=== PATIENT | female | born 1950 | race Caucasian/White ===

== ENCOUNTER 2018-02-20 13:22 | Outpatient (CLI) | payer MEDICARE ==
[~2018-02-20] VITALS: Ht 157.5 cm; Wt 93.4 kg
[2018-02-20] MEDS ORDERED: IRBE300T19 PO (13:57)
[2018-02-20] MEDS ORDERED: OMEP20CA10 PO (13:57)
[2018-02-20] MEDS ORDERED: MONT10TA24 PO (13:57)
[2018-02-20] MEDS ORDERED: ATOR-2 PO (13:57)
[2018-02-20] MEDS ORDERED: SERT100T10 PO (13:57)
[2018-02-20] MEDS ORDERED: HYDR-3964 PO (13:57)
[2018-02-20 14:46] LABS: BASOPHILS # (AUTO) 0.1 X10'3 (0-0.2); BASOPHILS % (AUTO) 0.7 % (0-1); EOSINOPHILS # (AUTO) 0.2 X10'3 (0-0.9); EOSINOPHILS % (AUTO) 1.8 % (0-6); LYMPHOCYTES % (AUTO) 35.5 % (21-51); MEAN CORPUSCULAR HEMOGLOBIN 26.4 PG (27.0-31.0); MEAN CORPUSCULAR HGB CONC 33.5 % (33.0-36.5); MEAN CORPUSCULAR VOLUME 78.9 FL (78-98); MEAN PLATELET VOLUME 7.6 FL (7.4-10.4); MONOCYTES # (AUTO) 0.9 X10'3 (0-0.9); MONOCYTES % (AUTO) 7.5 % (2-12); NEUTROPHILS # (AUTO) 6.2 X10'3 (1.8-7.7); NEUTROPHILS % (AUTO) 54.5 % (42-75); PRE OP HEMATOCRIT 39.1 % (35.0-45.0); PRE OP HEMOGLOBIN 13.1 g/dL (12.0-16.0); PRE OP PLATELET COUNT 435 X10'3 (140-440); RED BLOOD COUNT 4.96 X10'6 (4.20-5.60); RED CELL DISTRIBUTION WIDTH 16.2 % (11.5-14.5)
[2018-02-20 15:00] LABS: ALBUMIN 3.4 G/DL (3.4-5.0); ALBUMIN/GLOBULIN RATIO 0.8 (1.1-1.5); ALKALINE PHOSPHATASE 106 IU/L (46-116); BLOOD UREA NITROGEN 18 MG/DL (7-18); BUN/CREATININE RATIO 23.1 (6.6-38.0); CALCIUM 9.4 MG/DL (8.5-10.1); CHLORIDE 103 MMOL/L (99-107); CREATININE 0.78 MG/DL (0.40-0.90); PRE OP ALT 41 U/L (30-65); PRE OP ANION GAP 7 (8-16); PRE OP AST 23 U/L (10-37); PRE OP BILIRUB, TOTAL 0.2 MG/DL (0.0-1.0); PRE OP GLUCOSE 100 MG/DL (70-104); PRE OP POTASSIUM 4.1 MMOL/L (3.4-5.1); PRE OP SODIUM 138 MMOL/L (135-145); TOTAL PROTEIN 7.8 G/DL (6.4-8.2); eGFR 74 ML/MIN
[2018-02-20 15:21] LABS: CLARITY,URINE SLIGHTLY CLOUDY (Clear); COLOR,URINE YELLOW (Yellow); GLUCOSE, URINE NEGATIVE (Neg); KETONES,URINE NEGATIVE (Neg); LEUKOCYTE ESTERASE ,URINE NEGATIVE (Neg); NITRITES, URINE NEGATIVE (Neg); OCCULT BLOOD,URINE NEGATIVE (Neg); PH,URINE 5.5 (4.8-8.0); PROTEIN,URINE NEGATIVE (Neg); UROBILINOGEN,URINE 0.2 E.U/dL (0.2-1.0)
[2018-02-20 15:29] LABS: UA COLLECTION TYPE CLN CATCH MIDSTREAM
[2018-02-20 15:30] LABS: MUCUS STRANDS FEW /LPF (Neg); SQUAMOUS EPITHELIAL CELL,UR MANY /LPF (FEW)
[2018-02-20 15:31] LABS: BACTERIA,URINE 1+ /HPF (Neg); RBC,URINE 0-2 /HPF (0-2); WBC,URINE 0-4 /HPF (0-4)
[2018-02-27] MEDS ORDERED: ringers solution, lacted 1,000 ML IV SCH (05:00)
[2018-02-27] MEDS ORDERED: famotidine 20mg tablet PO ONE (05:30)
== END 2018-02-20 23:59 | disposition home or self-care (01) ==
LOC: PRE-OP 13:22 → EDSTATUS 02-27 11:45
PROVIDERS: ATTEND Orthopaedic Surgery
DX: Z01.812 Encounter for preprocedural laboratory examination (principal); M19.012 Primary osteoarthritis, left shoulder
CPT/HCPCS: 36415; 80053; 81001; 85025; 87070

== ENCOUNTER 2018-03-27 05:48 | Inpatient (IN) | payer MEDICARE ==
[2018-03-27] VITALS (17 sets, daily range): BP systolic 115–153; BP diastolic 62–79
[~2018-03-27] VITALS: Ht 157.5 cm; Wt 93.6 kg
[~2018-03-27 05:48] MED LIST: ATOR-2 PO; Cefazolin 2GM/50ML dext iso,osmotic IVPB IV ONE; IRBE300T19 PO; MONT10TA24 PO; OMEP20CA10 PO; SERT100T10 PO; famotidine 20mg tablet PO ONE; ringers solution, lacted 1,000 ML IV SCH; vancomycin inj 1,500 MG in normal saline 300ml IV soln IV ONE
[2018-03-27] MEDS ORDERED: LIDOcaine 1% (10mg/ml) 2ml vial ONE (06:08)
[2018-03-27 06:59] LABS: BASOPHILS # (AUTO) 0.1 X10'3 (0-0.2); BASOPHILS % (AUTO) 0.5 % (0-1); EOSINOPHILS # (AUTO) 0.2 X10'3 (0-0.9); EOSINOPHILS % (AUTO) 2.4 % (0-6); HEMATOCRIT 38.4 % (35.0-45.0); HEMOGLOBIN 12.9 g/dl (12.0-16.0); LYMPHOCYTES % (AUTO) 31.2 % (21-51); MEAN CORPUSCULAR HEMOGLOBIN 26.2 PG (27.0-31.0); MEAN CORPUSCULAR HGB CONC 33.5 % (33.0-36.5); MEAN CORPUSCULAR VOLUME 78.1 FL (78-98); MEAN PLATELET VOLUME 7.7 FL (7.4-10.4); MONOCYTES # (AUTO) 0.8 X10'3 (0-0.9); MONOCYTES % (AUTO) 8.4 % (2-12); NEUTROPHILS # (AUTO) 5.4 X10'3 (1.8-7.7); NEUTROPHILS % (AUTO) 57.5 % (42-75); PLATELET COUNT 393 X10'3 (140-440); RED BLOOD COUNT 4.92 X10'6 (4.20-5.60); RED CELL DISTRIBUTION WIDTH 16.5 % (11.5-14.5); WHITE BLOOD COUNT 9.5 X10'3 (4.5-11.0)
[2018-03-27 07:14] LABS: ALANINE AMINOTRANSFERASE 37 U/L (12-78); ALBUMIN 3.3 G/DL (3.4-5.0); ALBUMIN/GLOBULIN RATIO 0.8 (1.1-1.5); ALKALINE PHOSPHATASE 99 IU/L (46-116); ANION GAP 9 (8-16); ASPARTATE AMINO TRANSFERASE 20 U/L (10-37); BILIRUBIN,TOTAL 0.3 MG/DL (0.1-1.0); BLOOD UREA NITROGEN 15 MG/DL (7-18); CALCIUM 9.4 MG/DL (8.5-10.1); CHLORIDE 104 MMOL/L (99-107); CREATININE 0.75 MG/DL (0.40-0.90); GLUCOSE 112 MG/DL (70-104); POTASSIUM 3.9 MMOL/L (3.5-5.1); SODIUM 138 MMOL/L (135-145); TOTAL CARBON DIOXIDE 25.1 MMOL/L (24-32); TOTAL PROTEIN 7.6 G/DL (6.4-8.2); eGFR 77 ML/MIN
[2018-03-27] MEDS ORDERED: ketorolac trometh. 30mg/ml inj. ONE (08:02)
[2018-03-27] MEDS ORDERED: ROPIVAcaine 0.5% (5mg/ml) 30ml vial ONE ×3 (08:03→12:01)
[2018-03-27] MEDS ORDERED: rocuronium bromide 100mg/10ml (10mg/ml) injection IV ONE (08:35)
[2018-03-27] MEDS ORDERED: dexamethasone sod phosphate 10mg/ml inj ONE (08:35)
[2018-03-27] MEDS ORDERED: sevoflurane 250ml liquid IH ONE (08:35)
[2018-03-27] MEDS ORDERED: scopolamine 1.5mg patch.TD72 TD ONE (08:41)
[2018-03-27] MEDS ORDERED: cloNIDine hcl/PF 100mcg/ml inj ONE (08:44)
[2018-03-27] MEDS ORDERED: midazolam 2 mg/2 ml injection ONE (08:46)
[2018-03-27] MEDS ORDERED: fentaNYL/PF 50MCG/1 ML 2ML syringe ONE (08:46)
[2018-03-27] MEDS ORDERED: propofol inj 20 ML IV ONE (08:59)
[2018-03-27] MEDS ORDERED: LIDOcaine 1%/PF 5ML 10 MG/ML VIAL ONE (08:59)
[2018-03-27] MEDS ORDERED: tranexamic acid inj. 1,000 MG in normal saline 100ml IV soln 90 ML IV ONE ×2 (09:30→12:30)
[2018-03-27] MEDS ORDERED: ringers solution, lacted 1,000 ML IV SCH (09:53)
[2018-03-27] MEDS ORDERED: proCHLORperazine 10 MG/2 ml inj IV PRN (09:55)
[2018-03-27] MEDS ORDERED: ondansetron/PF 4mg/2ml inj IV PRN ×2 (09:55→10:55)
[2018-03-27] MEDS ORDERED: morphine 4 MG/ML inj SYRINge IV PRN ×2 (09:55)
[2018-03-27] MEDS ORDERED: meperidine/PF 25mg/ml syringe IV PRN ×3 (09:55)
[2018-03-27] MEDS ORDERED: ondansetron/PF 4mg/2ml inj ONE (10:13)
[2018-03-27] MEDS ORDERED: vancomycin 1,000mg inj ONE ×2 (10:17→10:18)
[2018-03-27] MEDS ORDERED: magnesium hydroxide 30ml (MOM) UD suspension PO PRN (10:55)
[2018-03-27] MEDS ORDERED: diphenhydrAMINE 25mg capsule PO PRN ×2 (10:55)
[2018-03-27] MEDS ORDERED: HYDROmorphone 1 mg/ml syringe IV PRN ×2 (10:55)
[2018-03-27] MEDS ORDERED: acetaminophen 325mg tablet PO PRN (10:55)
[2018-03-27] MEDS ORDERED: bisacodyl 10mg suppository rectal RC PRN (10:55)
[2018-03-27] MEDS ORDERED: oxyCODONE IR 5mg (immed. release) tablet PO PRN ×2 (10:55)
[2018-03-27] MEDS: pantoprazole 40mg Tablet.DR PO SCH (11:13)
[2018-03-27] MEDS ORDERED: tranexamic acid inj. 940 MG in normal saline 100ml IV soln 100 ML IV ONE (14:00)
[2018-03-27] MEDS: potassium cl 20mEq in 1/2 NS 1,000 ML IV SCH (14:57)
[2018-03-27] MEDS: gabapentin 300mg capsule PO SCH ×2 (14:58→20:16)
[2018-03-27] MEDS: ceFAZolin 1GM/D5W- ADD-VANTAGE 50 ML IV SCH (15:43)
[2018-03-27] MEDS: ketorolac tromethamine 15mg/ml inj. IV SCH ×2 (15:43→20:16)
[2018-03-27] MEDS: acetaminophen 325mg tablet PO SCH ×2 (15:44→20:18)
[2018-03-27] MEDS ORDERED: vancomycin/NS 1 GM ADD-VANTAGE 250 ML IV SCH (20:00)
[2018-03-27] MEDS ORDERED: atorvastatin 20mg tablet PO SCH (21:00)
[2018-03-27] MEDS ORDERED: sennosides 8.6mg tablet PO SCH (21:00)
[2018-03-27] MEDS ORDERED: losartan 50mg tablet PO SCH (21:00)
[2018-03-27] MEDS ORDERED: montelukast 10mg tablet PO SCH (21:00)
[2018-03-27] MEDS ORDERED: sertraline 50mg tablet PO SCH (21:00)
[2018-03-28] MEDS: ceFAZolin 1GM/D5W- ADD-VANTAGE 50 ML IV SCH (00:07)
[2018-03-28 02:00] VITALS: BP 123/59
[2018-03-28] MEDS: ketorolac tromethamine 15mg/ml inj. IV SCH ×2 (02:17→07:55)
[2018-03-28] MEDS: potassium cl 20mEq in 1/2 NS 1,000 ML IV SCH ×3 (02:18→10:52)
[2018-03-28] MEDS: acetaminophen 325mg tablet PO SCH ×3 (02:18→13:48)
[2018-03-28 06:00] VITALS: BP 115/71
[2018-03-28 06:24] LABS: BASOPHILS % (AUTO) 0.1 % (0-1); EOSINOPHILS # (AUTO) 0.2 X10'3 (0-0.9); EOSINOPHILS % (AUTO) 1.4 % (0-6); HEMOGLOBIN 10.2 g/dl (12.0-16.0); LYMPHOCYTES # (AUTO) 2.8 X10'3 (1.1-4.8); LYMPHOCYTES % (AUTO) 21.2 % (21-51); MEAN CORPUSCULAR HEMOGLOBIN 25.9 PG (27.0-31.0); MEAN CORPUSCULAR HGB CONC 32.9 % (33.0-36.5); MEAN CORPUSCULAR VOLUME 78.7 FL (78-98); MEAN PLATELET VOLUME 7.7 FL (7.4-10.4); MONOCYTES % (AUTO) 7.6 % (2-12); NEUTROPHILS # (AUTO) 9.2 X10'3 (1.8-7.7); NEUTROPHILS % (AUTO) 69.7 % (42-75); PLATELET COUNT 320 X10'3 (140-440); RED BLOOD COUNT 3.94 X10'6 (4.20-5.60); RED CELL DISTRIBUTION WIDTH 16.6 % (11.5-14.5); WHITE BLOOD COUNT 13.3 X10'3 (4.5-11.0)
[2018-03-28 06:39] LABS: ANION GAP 8 (8-16); CHLORIDE 106 MMOL/L (99-107); POTASSIUM 4.1 MMOL/L (3.5-5.1); SODIUM 138 MMOL/L (135-145); TOTAL CARBON DIOXIDE 24.5 MMOL/L (24-32)
[2018-03-28] MEDS: pantoprazole 40mg Tablet.DR PO SCH (07:53)
[2018-03-28] MEDS: gabapentin 300mg capsule PO SCH ×2 (07:54→13:47)
[2018-03-28] MEDS ORDERED: aspirin 325mg tablet PO SCH (08:30)
[2018-03-28] MEDS ORDERED: OXYCODONE HCL 10 MG PO (09:30)
[2018-03-28 10:00] VITALS: BP 102/48
[2018-03-28] MEDS ORDERED: celeCOXIB 100mg capsule PO SCH (20:00)
[2018-03-29] MEDS ORDERED: acetaminophen 325mg tablet PO PRN (10:55)
== END 2018-03-28 15:35 | disposition home or self-care (01) | DRG 483 ==
LOC: PAS IN 05:48 → EDSTATUS 09:00 → ORTHO 4S 12:05
PROVIDERS: ADMIT Orthopaedic Surgery; ATTEND Orthopaedic Surgery
PROC: 3E0T3BZ Introduction of Anesthetic Agent into Peripheral Nerves and Plexi, Percutaneous Approach (ICD-10-PCS; 2018-03-27)
PROC: 0LS40ZZ Reposition Left Upper Arm Tendon, Open Approach (ICD-10-PCS; 2018-03-27)
PROC: 0RRK0JZ Replacement of Left Shoulder Joint with Synthetic Substitute, Open Approach (ICD-10-PCS; principal; 2018-03-27 08:45)
DX: M19.012 Primary osteoarthritis, left shoulder (principal); D62 Acute posthemorrhagic anemia; I10 Essential (primary) hypertension; K21.9 Gastro-esophageal reflux disease without esophagitis; E78.5 Hyperlipidemia, unspecified; M24.012 Loose body in left shoulder; F32.9 Major depressive disorder, single episode, unspecified; E66.9 Obesity, unspecified; G89.29 Other chronic pain; M65.812 Other synovitis and tenosynovitis, left shoulder; Z79.899 Other long term (current) drug therapy; Z90.710 Acquired absence of both cervix and uterus; Z82.49 Family history of ischemic heart disease and other diseases of the circulatory system; Z83.3 Family history of diabetes mellitus; Z68.37 Body mass index [BMI] 37.0-37.9, adult
CPT/HCPCS: 36415; 80051; 80053; 85025; 87070; 93005; 97116; 97161; 97530; A4565; A7000; C1713; C1776; J0690; J0735; J1100; J1885; J2001; J2250; J2405; J2704; J2795; J3010; J3370; J3490; J7030; J7040; J7120

== ENCOUNTER 2021-06-28 07:51 | Emergency (ER) | payer MEDICARE ==
[~2021-06-28] VITALS: Ht 154.9 cm; Wt 90.9 kg
[~2021-06-28 07:51] MED LIST changes: +ALBU8.5H17 INH; +ASPI-1 PO; -Cefazolin 2GM/50ML dext iso,osmotic IVPB IV ONE; +DIPH25CA83 PO; -IRBE300T19 PO; +LOSA50TA64 PO; -MONT10TA24 PO; +NAPR220T67 PO; -OMEP20CA10 PO; +OMEP20CA15 PO; +SERT-434 PO; -SERT100T10 PO; +WALKERFR; -famotidine 20mg tablet PO ONE; -ringers solution, lacted 1,000 ML IV SCH; -vancomycin inj 1,500 MG in normal saline 300ml IV soln IV ONE
[2021-06-28 07:57] VITALS: BP 153/86
== END 2021-06-28 10:38 | disposition left against medical advice (07) ==
LOC: ER 07:51
DX: M25.539 Pain in unspecified wrist (principal); Z53.21 Procedure and treatment not carried out due to patient leaving prior to being seen by health care provider